=== PATIENT | male | born 1970 | race Caucasian/White ===

== ENCOUNTER 2021-05-23 21:43 | Emergency (ER) | payer BC, OTHER ==
[~2021-05-23] VITALS: Ht 190.5 cm; Wt 87.6 kg
--- NOTE | 2021-05-23 21:59 | PHYS DOC ---
Past History Past Surgical History ACL repair 89 RT knee General Adult HPI: HPI: ".. I was in the kitchen .. and gabe turned weird .. and I got this severe pain.. in my Rt leg... " Patient is a 51 year old male who presents with above hx and complaint onset of severe pain right leg.. Patient denies any previous history of DVT. No history of recent trauma. Did go to the vascular [place]. No family history of DVTs or coagulopathy. Patient localizes pain somewhat anterior garcia area. This is same leg he had a ACL repair and 1988. Patient denies other health issues. Normally healthy. No recent travel outside [facility]. No prolonged driving episodes. No specific history of injury during the basketball game which he was referring. Review of Systems: Review of Systems: Constitutional: Denies fever or chills Eyes: Denies change in visual acuity HENT: Denies nasal congestion or sore throat Respiratory: Denies cough or shortness of breath Cardiovascular: Denies chest pain or edema GI: Denies abdominal pain, nausea, vomiting, bloody stools or diarrhea : Denies dysuria Musculoskeletal: Right lower leg pain Integument: Denies rash Neurologic: Denies headache, focal weakness or sensory changes Endocrine: Denies polyuria or polydipsia Lymphatic: Denies swollen glands Psychiatric: Denies depression or anxiety Family History: Family History: Noncontributory to presentation Current Medications: Current Meds: See nursing for home meds Allergies: Allergies: Allergic to penicillin Physical Exam: PE: Constitutional: Well developed, well nourished, mild to moderate distress, non- toxic appearance. [] HENT: Normocephalic, atraumatic, bilateral external ears normal, oropharynx moist, no oral exudates, nose normal. [] Eyes: PERRLA, EOMI, conjunctiva normal, no discharge. [] Neck: Normal range of motion, no tenderness, supple, no stridor. [] Cardiovascular:Heart rate regular rhythm, no murmur [] Lungs & Thorax: Bilateral breath sounds clear to auscultation [] Abdomen: Bowel sounds normal, soft, no tenderness, no masses, no pulsatile masses. [] Skin: Warm, dry, no erythema, no rash. [] Back: No tenderness, no CVA tenderness. [] Extremities: No tenderness, no cyanosis, no clubbing, ROM intact, no edema. Right lower leg tender. Has extensive scarring from harvest of tendon and anterior cruciate repair. Distal neurovascular is equal to the left leg. Cap refill equal to left foot. Neurologic: Alert and oriented X 3, normal motor function, normal sensory function, no focal deficits noted. [] Psychologic: Affect anxious, judgement normal, mood normal. [] EKG: EKG: My interpretation EKG shows sinus rhythm at 66 bpm. No acute morphology. Time of EKG is 2248 hrs. [] Radiology/Procedures: Radiology/Procedures: [[address] [address] IMAGING REPORT Signed PATIENT: BEL BENSON ACCOUNT: [id number] : 1970 LOCATION: ER AGE: 51 SEX: M EXAM STATUS: REG ER ORD. PHYSICIAN: DEBORAH ALFONSO MD REASON: Pain to lateral RLE, no trauma. Hx: knee surgery 1997 PROCEDURE: TIBIA FIBULA RIGHT AP and lateral right tibia and fibula radiographs 05/23/2021 CLINICAL HISTORY: Right lower leg pain. 2 AP and 2 lateral digital radiographs of the right tibia and fibula were obtained. Patient is post ACL reconstruction. No fracture or dislocation of the right tibia or fibula is seen. Mild degenerative changes are seen involving the right ankle joint. IMPRESSION: No acute osseous abnormality is seen. Electronically signed by: Alfredo Gallagher MD (05/23/2021 11:55 PM) [id number] DICTATED AND SIGNED BY: ALFREDO GALLAGHER MD DATE: 05/23/21 4189 CC: DEBORAH ALFONSO MD; ANUSHKA AZAR ~MTH0 0 ][address] [address] IMAGING REPORT Signed PATIENT: BEL BENSON ACCOUNT: [id number] : 1970 LOCATION: ER AGE: 51 SEX: M EXAM STATUS: REG ER ORD. PHYSICIAN: DEBORAH ALFONSO MD REASON: edema, pain, ( prior leg with acl repair) PROCEDURE: VENOUS LOWER EXTREMITY RIGHT Right Lower Extremity Venous Doppler Ultrasound History: Reason: edema, pain, ( prior leg with acl repair) / Spl. Instructions: / History: Comparison: None Procedure: Color flow, duplex, spectral analysis and 2D images are obtained with and without compression in the area of the common femoral vein, superficial femoral vein - femoral vein junction, main femoral vein (superficial femoral vein) and popliteal vein. Veins of the proximal calf are also imaged. Findings: There is normal duplex flow, color flow and compressibility of all visualized vein segments. No evidence of deep venous thrombus is present. Impression: No evidence of DVT. Electronically signed by: Guillaume Hamilton III, MD (05/24/2021 12:34 AM) [facility] DICTATED AND SIGNED BY: GUILLAUME HAMILTON III, MD DATE: 05/24/2131 CC: DEBORAH ALFONSO MD; ANUSHKA AZAR ~MTH0 0 Heart Score: C/O Chest Pain: N/A Risk Factors: Risk Factors: DM, Current or recent (<one month) smoker, HTN, HLP, family history of CAD, obesity. Risk Scores: Score 0 - 3: 2.5% MACE over next 6 weeks - Discharge Home Score 4 - 6: 20.3% MACE over next 6 weeks - Admit for Clinical Observation Score 7 - 10: 72.7% MACE over next 6 weeks - Early Invasive Strategies Course & Med Decision Making: Course & Med Decision Making Pertinent Labs and Imaging studies reviewed. (See chart for details) Patient take Tylenol and ibuprofen for pain. Follow-up primary care. Return if any concerns. Reviewed patient's labs and ultrasound findings. Feels he is v kali low risk for undiagnosed DVT. Suspect patient's pain is primarily musculoskeletal Impression: 1. Right lower leg pain [] Dragon Disclaimer: Dragon Disclaimer: This electronic medical record was generated, in whole or in part, using a voice recognition dictation system. Departure Departure: Referrals: ANUSHKA AZAR (PCP) [place] Disclaimer This chart was dictated in whole or in part using Voice Recognition software in a busy, high-work load, and often noisy Emergency Department environment. It may contain unintended and wholly unrecognized errors or omissions. Dragon Disclaimer This chart was dictated in whole or in part using Voice Recognition software in a busy, high-work load, and often noisy Emergency Department environment. It may contain unintended and wholly unrecognized errors or omissions. DEBORAH ALFONSO MD May 23, 2021 21:59
[2021-05-23] MEDS ORDERED: KETOROLAC 60 MG/2 ML VIAL. IM ONE (22:39)
[2021-05-23] MEDS: KETOROLAC 60 MG/2 ML VIAL. IM ONE (22:41)
[2021-05-23 23:15] LABS: BASO # 0.1 x10^3/uL (0.0-0.2); BASO % 1 % (0-3); EOS # 0.1 x10^3/uL (0.0-0.7); EOS % 2 % (0-3); HEMATOCRIT 37.9 % (39.0-53.0); LYMPH # 2.2 x10^3/uL (1.0-4.8); LYMPH % 29 % (24-48); MEAN CORPUSCULAR HEMOGLOBIN 32 pg (25-35); MEAN CORPUSCULAR HGB CONC 34 g/dL (31-37); MEAN CORPUSCULAR VOLUME 94 fL (79-100); MONO # 0.6 x10^3/uL (0.0-1.1); MONO % 8 % (0-9); NEUT # 4.4 x10^3uL (1.8-7.7); NEUT % 60 % (31-73); PLATELET COUNT 196 x10^3/uL (140-400); RED BLOOD COUNT 4.06 x10^6/uL (4.30-5.70); RED CELL DISTRIBUTION WIDTH 13.6 % (11.5-14.5); WHITE BLOOD COUNT 7.4 x10^3/uL (4.0-11.0)
[2021-05-23 23:23] LABS: CALCIUM 8.6 mg/dL (8.5-10.1); CREATININE 1.1 mg/dL (0.7-1.3); GFR 70.6
--- NOTE | 2021-05-23 23:57 | RAD ---
AP and lateral right tibia and fibula radiographs 05/23/2021 CLINICAL HISTORY: Right lower leg pain. 2 AP and 2 lateral digital radiographs of the right tibia and fibula were obtained. Patient is post A CL reconstruction. No fracture or dislocation of the right tibia or fibula is seen. Mild degenerative changes are seen involving the right ankle joint. IMPRESSION: No acute osseous abnormality is seen. Electronically signed by: Alfredo Gallagher MD (05/23/2021 11:55 PM) [id number]
--- NOTE | 2021-05-24 00:36 | RAD ---
Right Lower Extremity Venous Doppler Ultrasound History: Reason: edema, pain, ( prior leg with acl repair) / Spl. Instructions: / History: Comparison: None Procedure: Color flow, duplex, spectral analysis and 2D images are obtained with and without compress ion in the area of the common femoral vein, superficial femoral vein - femoral vein junction, main fe moral vein (superficial femoral vein) and popliteal vein. Veins of the proximal calf are also imaged. Findings: There is normal duplex flow, color flow and compressibility of all visualized vein segments. No evide nce of deep venous thrombus is present. Impression: No evidence of DVT. Electronically signed by: Geoffrey Oconnor III, MD (05/24/2021 12:34 AM) [facility]
[2021-05-24] MEDS: APIXABAN 5 MG TABLET. PO SCH (00:40)
[2021-05-24 00:43] VITALS: BP 118/72
--- NOTE | 2021-05-24 07:33 | EKG ---
[address] [address] Test Date: 2021-05-23 Test Time: 22:48:53 Pat Name: BEL BENSON Department: Room: Gender: M [employer]ile Instrument Technician: : 1970 Requested By: DEBORAH ALFONSO Order Number: [id number] Reading MD: Measurements Intervals [place] Rate: 66 P: 36 MA: 152 QRS: 51 QRSD: 88 T: 31 QT: 356 QTc: 375 Interpretive Statements SINUS RHYTHM NORMAL ECG RI6.02 No previous ECG available for comparison
== END 2021-05-24 00:46 | disposition home or self-care (01) ==
LOC: ER 21:43
DX: M79.661 Pain in right lower leg (principal); Z88.0 Allergy status to penicillin
CPT/HCPCS: 36415; 73590; 80048; 85025; 85379; 85610; 85730; 93005; 93971; 96372; 99285; J1885